=== PATIENT | female | born 1985 | race Two or more races ===

== ENCOUNTER 2020-09-05 22:10 | Inpatient (IN) | payer OTHER ==
[~2020-09-05] VITALS: Ht 157.5 cm; Wt 70.3 kg
[2020-09-05] MEDS ORDERED: PRENATAL TABLE1 EAC1 PO (23:58)
== END 2020-09-07 14:23 | disposition home or self-care (01) | DRG 788 ==
LOC: SURG-SUITE 22:10 → LDR 22:10 → SURG-SUITE 09-06 00:53
PROVIDERS: ADMIT Obstetrics & Gynecology; ATTEND Obstetrics & Gynecology
PROC: 4A1HXFZ Monitoring of Products of Conception, Cardiac Rhythm, External Approach (ICD-10-PCS; 2020-09-05)
PROC: 10D00Z1 Extraction of Products of Conception, Low, Open Approach (ICD-10-PCS; principal; 2020-09-05 22:00)
DX: O32.2XX0 Maternal care for transverse and oblique lie, not applicable or unspecified (principal); Z3A.25 25 weeks gestation of pregnancy; Z37.0 Single live birth; Z20.828 Contact with and (suspected) exposure to other viral communicable diseases

== ENCOUNTER 2021-12-28 06:35 | Day surgery (SDC) | payer OTHER ==
[~2021-12-28] VITALS: Ht 167.6 cm; Wt 59.9 kg
[~2021-12-28 06:35] MED LIST: PRENATA CHEWAB1 EACH PO; PRENATAL TABLE1 EAC1 PO; SYNTHROID75 MCG PO
== END 2021-12-28 14:35 | disposition home or self-care (01) ==
LOC: CIR.AMB 06:35
PROVIDERS: ATTEND Obstetrics & Gynecology
DX: O34.31 Maternal care for cervical incompetence, first trimester (principal); Z3A.13 13 weeks gestation of pregnancy; Z20.822 Contact with and (suspected) exposure to COVID-19; Z91.013 Allergy to seafood; Z86.16 Personal history of COVID-19; E06.3 Autoimmune thyroiditis

== ENCOUNTER 2022-03-14 14:00 | Outpatient (CLI) | payer OTHER | END 2022-03-14 15:01 | disposition home or self-care (01) | LOC: NST 14:00 | PROVIDERS: ATTEND Obstetrics & Gynecology Maternal & Fetal Medicine | DX: Z34.82 Encounter for supervision of other normal pregnancy, second trimester (principal) ==

== ENCOUNTER 2022-03-19 14:52 | Outpatient (CLI) | payer OTHER | END 2022-03-19 15:27 | disposition home or self-care (01) | LOC: NST 14:52 | PROVIDERS: ATTEND Obstetrics & Gynecology Maternal & Fetal Medicine | DX: Z34.82 Encounter for supervision of other normal pregnancy, second trimester (principal) ==

== ENCOUNTER → 2022-04-11 | Outpatient (CLI) | payer OTHER | END | disposition home or self-care (01) | LOC: NST 14:06 | PROVIDERS: ATTEND Obstetrics & Gynecology | DX: Z34.82 Encounter for supervision of other normal pregnancy, second trimester (principal) ==

== ENCOUNTER 2022-05-25 09:06 | Outpatient (CLI) | payer OTHER | END 2022-05-25 10:36 | disposition home or self-care (01) | LOC: NST 09:06 | PROVIDERS: ATTEND Obstetrics & Gynecology | DX: Z34.83 Encounter for supervision of other normal pregnancy, third trimester (principal) ==

== ENCOUNTER 2022-06-05 09:30 | Inpatient (IN) | payer OTHER ==
[~2022-06-05] VITALS: Ht 167.6 cm; Wt 2.7 kg
[2022-06-05] MEDS ORDERED: NIFEDIPINE ER30 M1 PO (11:58)
== END 2022-06-09 14:13 | disposition home or self-care (01) | DRG 786 ==
LOC: EDSTATUS 09:30 → OB/GYN 06-07 08:30 → O/R 06-07 09:16 → OB/GYN 06-07 09:16
PROVIDERS: ADMIT Obstetrics & Gynecology; ATTEND Obstetrics & Gynecology
PROC: 0UCC7ZZ Extirpation of Matter from Cervix, Via Natural or Artificial Opening (ICD-10-PCS; 2022-06-07)
PROC: 4A1HXCZ Monitoring of Products of Conception, Cardiac Rate, External Approach (ICD-10-PCS; 2022-06-07)
PROC: 10D00Z1 Extraction of Products of Conception, Low, Open Approach (ICD-10-PCS; principal; 2022-06-07 10:00)
DX: O34.212 Maternal care for vertical scar from previous cesarean delivery (principal); O34.33 Maternal care for cervical incompetence, third trimester; O60.14X0 Preterm labor third trimester with preterm delivery third trimester, not applicable or unspecified; Z3A.36 36 weeks gestation of pregnancy; Z37.0 Single live birth; Z20.822 Contact with and (suspected) exposure to COVID-19